=== PATIENT | female | born 1985 | race African-American/Black ===

== ENCOUNTER 2018-12-30 05:09 | Day surgery (SDC) | payer MEDICAID ==
[~2018-12-30] VITALS: Ht 160 cm; Wt 60.3 kg
[2018-12-30 05:40] LABS: BASOPHILS 0.1 % (0-2); EOSINOPHILS 1.3 % (0-7); HEMATOCRIT 25.9 % (36.0-48.0); HEMOGLOBIN 8.3 g/dL (12-16); IMMATURE GRANULOCYTES 0.1 % (0-5); MCH 26.6 pg (26.0-34.0); MEAN PLATELET VOLUME 8.8 fL (7.4-10.4); NEUTROPHILS 70.5 % (40-80); RBC 3.12 10x6/uL (4.00-5.40); RDW 20.1 % (11.5-14.5); WBC 7.6 10x3/uL (4.8-10.8)
[2018-12-30 05:42] LABS: PLATELET COUNT 211 10x3/uL (130-400)
[2018-12-30 05:47] LABS: PROTIME 12.7 SECONDS (11.6-15.0)
[2018-12-30 05:50] LABS: ANION GAP 14.4 mmol/L (8-16); CALCIUM 8.4 mg/dL (8.5-10.1); CREATININE - SERUM 4.1 mg/dL (0.6-1.3); POTASSIUM - SERUM 3.4 mmol/L (3.5-5.1)
[2018-12-30 06:31] LABS: HCG URINE NEGATIVE (NEGATIVE)
[2018-12-30] MEDS ORDERED: NIFEDIPINE 30 MG (06:32)
[2018-12-30] MEDS ORDERED: NORMODYNE / TR200 MG PO (06:33)
[2018-12-30] MEDS ORDERED: HUMULIN 70100 UNIT/1 SC (06:35)
[2018-12-30] MEDS ORDERED: HUMULIN N100 U/ML SQ (06:36)
[2018-12-30] MEDS ORDERED: VITAMIN D250000 UNIT (06:37)
[2018-12-30 07:10] VITALS: BP 163/93; Ht 160 cm; Wt 60.3 kg
[2018-12-30] MEDS ORDERED: HYDROCODON-ACE1 EAC7 PO (10:56)
--- NOTE | 2018-12-30 11:12 | NUR ---
APPLIED ICE TO ABDOMEN INCISION SITES ORDERED. PT RESTING QUIETLY IN BED. RR NONLABORED ON RA. WILL CTM.
--- NOTE | 2018-12-30 14:42 | NUR ---
1250 IV REMOVED, INSTRUCTIONS GIVEN. PT STATED HER CAR WAS IN THE PARKING LOT BUT HAD A FRIEND COMING TO PICK HER UP, SHE LIVE A HOUR A WAY. PT IN DOOR WAY STATED SHE WAS WAITING FOR A WHEEL CHAIR SO SHE CAN WAIT DOWN STAIRS FOR HER FRIEND. PT INSTRUCTED HER FRIEND NEEDS TO COME UP HERE. PT UNDERSTOOD 1320 PT NOTED NOT IN ROOM. GONE. NO ONE CAME UP TO GET PT. 1330 ATTEMPTED TO CALL PT BUT NO ANSWER. CHECK AIRMAN NOTED
--- NOTE | 2019-01-02 08:28 | OP ---
PATIENT NAME: JASON ALCALA MEDICAL RECORD: [id number] :83 LOCATION:D.OPS ADMISSION DATE: SURGEON: FREDRICK GALEANO MD DATE OF OPERATION: 12/30/2018 REFERRED BY: Dr. Carmelo Braun. PRIMARY CARE PHYSICIAN AND REFERRING DOCTOR: Dr. Simeon Summers of [facility] INTRAOPERATIVE VP TALENT MANAGEMENT: Dr. Morales of [facility]. SURGEON: Fredrick Galeano MD ANESTHESIA: General endotracheal per ROTARY ENGINE ASSEMBLER. PREOPERATIVE DIAGNOSIS: End-stage renal disease on chronic hemodialysis. POSTOPERATIVE DIAGNOSES: 1. End-stage renal disease on chronic hemodialysis. 2. Benign-appearing left ovarian cyst. OPERATION PERFORMED: Laparoscopic implantation of a Merit flex neck classic coil dual cuffed dialysis catheter with exit site in the left upper quadrant and intraoperative DATA COLLECTION TECHNICIAN consultation with Dr. Morales, who performed biopsy and drainage of the left ovarian cyst laparoscopically. PREOPERATIVE NOTE: Ms. Alcala is a 33-year-old -Iraqi female with end-stage renal disease. She is on dialysis now with a tunneled dialysis catheter. She is brought to the operating room for laparoscopic implantation of peritoneal dialysis catheter. She has had the desired exit site marked in the left upper quadrant preoperatively and I believe that is going to be a very reasonable site for her. I have made arrangements preoperatively to have the correct peritoneal dialysis catheter at hand to utilize that exit site. Under general endotracheal anesthesia, she was placed in supine position. I measured on the abdomen with the flex neck coil catheter and with the use of templates and identified the ideal site for an incision in the left lower quadrant paramedian approximately 2 cm from the midline where the deeper of the 2 Dacron felt cuffs would be placed within the substance of the rectus muscle and identified the subsequent course of the catheter to the desired exit site. I then inserted a 5-mm diameter XL Optiview port with a 5 mm 0-degree laparoscope through a small incision in the right upper quadrant of the abdomen and noted the presence of adhesions in the lower abdominal midline, which needed to be lysed. I inserted yet another 5-mm port in the right lower quadrant and used Harmonic scalpel to divide the adhesions. There was no bleeding or any other complication with that. There was no omentum within the pelvis or any indication for omentopexy or similar procedure. There were no hernias noted. I then made a transverse incision at the site in the right lower quadrant over the rectus muscle and carried that down to the anterior rectus sheath. A pursestring suture of 0 Vicryl was placed there. I then infiltrated the rectus sheath at that level with 0.25% Marcaine with epinephrine. I used an 8 mm trocar to make the transrectus passage and preperitoneal tunnel during laparoscopic visualization and inserted the catheter leaving the deeper Dacron OPERATIVE REPORT [id number] JASON ALCALA LORENAECIA felt cuff deep to the anterior rectus sheath and the pursestring suture of Vicryl was tied. The catheter was seen to reside at a proper depth within the pelvis. I also identified the presence of a large baseball sized left ovarian cyst, which was benign in appearance other than its size. There was no evidence of bleeding. At this point, we consulted Dr. Morales who was kind enough to come to the operating room and see the lesion and then scrubbed in. He performed laparoscopic cyst puncture and drainage and biopsy. It was his opinion that this was most likely a benign follicular cyst and does not necessarily need further treatment. He added a 10-mm suprapubic port during his portion of the procedure. He also used a bipolar laparoscopic cautery device. Hemostasis was excellent within the pelvis and abdominal wall. The new laparoscopic catheter was then placed in its tunnel and brought out with a Maria Dolores tunneler through the desired exit site, which made a very nice snug clean exit wound. The catheter was then attached to a liter bag of saline with urologic tubing and this fluid was allowed to run in rapidly into the abdomen and then it was allowed to run back out by gravity drainage and all of the liter of saline was easily recovered. Subsequently, the catheter was attached to a transfer set and sterilely capped. The laparoscopic ports were removed after a Mark-Annamaria suture passer was used to close the suprapubic 10-mm port site with 0 Vicryl tie. The wounds were infiltrated with Marcaine and closed with interrupted inverted 3-0 Vicryl and Dermabond glue. The longer larger incision, through which the catheter itself was inserted was closed with a running intracuticular 4-0 Stratafix. The incisions were sealed with glue and dressed with Maxorb Ag, Tegaderm, and Cavilon skin prep. The catheter exit site was dressed with a chlorhexidine Biopatch and Tegaderm and then the catheter coiled and covered with a 4 x 4 Medipore. At this point, the patient was awakened and taken to the recovery room in stable condition. PLAN: The patient will be able to go home today. I am giving her a prescription for 20 tablets of [place] 5/325. She may take 1 or if necessary 2 as often as every 4 hours p.r.n. for pain. An appointment will be made for her to follow up with me in my office next week. She will be appointed to have peritoneal catheter irrigation done next week when she is there for dialysis. She will follow up with Dr. Morales in his office if she wishes. She may wish to see Dr. Summers for gynecologic problems. Certainly Dr. Morales and I will watch for the results of the biopsy and pathology report today. She will resume her usual renal diet, home medications, and dialysis schedule. She is to wear an abdominal binder and use an ice pack p.r.n. pain from the abdominal incisions. TRANSINT:[id number] Voice Confirmation ID: [id number] DOCUMENT ID: [id number] OPERATIVE REPORT [id number] JASON ALCALA JAMES MD at 0828 CC: CARMELO MORALES MD, CARMELO BRAUN and SIMEON SUMMERS [id number] DICTATION DATE: 12/30/18 1132 MARKETING TRAINEE: 12/30/18 1159 [facility] 12/30/18 [facility] [address] [place] [address]
== END 2018-12-30 13:20 | disposition home or self-care (01) ==
LOC: D.OPS 05:09
PROVIDERS: Surgery; ATTEND Internal Medicine Nephrology
DX: N18.6 End stage renal disease (principal); N83.202 Unspecified ovarian cyst, left side

== ENCOUNTER 2019-05-10 21:27 | Inpatient (IN) | payer MEDICAID ==
[~2019-05-10] VITALS: Ht 160 cm; Wt 58.3 kg
[~2019-05-10 21:27] MED LIST: HUMULIN 70100 UNIT/1 SC; HUMULIN N100 U/ML SQ; HYDROCODON-ACE1 EAC7 PO; NIFEDIPINE 30 MG; NORMODYNE / TR200 MG PO; VITAMIN D250000 UNIT
[2019-05-10] MEDS ORDERED: FERROUS SULFAT325 MG PO (21:30)
[2019-05-10 22:12] VITALS: BP 200/110
[2019-05-10 22:30] VITALS: BP 212/117
[2019-05-10 22:50] VITALS: BP 194/106
[2019-05-10 23:00] VITALS: BP 190/105
[2019-05-10 23:18] LABS: ANION GAP 18.7 mmol/L (8-16); CALCIUM 8.1 mg/dL (8.5-10.1); CARBON DIOXIDE 17.8 mmol/L (21.0-32.0); POTASSIUM - SERUM 5.5 mmol/L (3.5-5.1)
[2019-05-10 23:25] LABS: ALBUMIN 2.7 g/dL (3.4-5.0); BILIRUBIN - TOTAL 0.61 mg/dL (0.2-1.3); MAGNESIUM - SERUM 1.6 mg/dL (1.8-2.4); PROTEIN - SERUM 6.9 g/dL (6.4-8.2)
[2019-05-10] MEDS ORDERED: PHOSLO667 MG PO (23:31)
[2019-05-10] MEDS ORDERED: HYDRALAZINE HCL25 MG PO (23:32)
--- NOTE | 2019-05-10 23:42 | NUR ---
ADMIT TO 2127, FROM ER, 20G.Bertram SARKARABDOMEN-PD CATH, PT CHIDI MARLEY AT [facility] WILL START NEXT DOSE, PT IS A&OX4,, HISTORY AND MEDS REVIEWED,DENIES ANY NEEDS AT THIS TIME, BED IS LOW, SRX2, CALL LIGHT IN REACH, WILL CONTINUE PLAN OF CARE
[2019-05-11] VITALS (54 sets, daily range): BP systolic 115–209; BP diastolic 65–123; Ht 160 cm; Wt 58.3 kg
--- NOTE | 2019-05-11 04:14 | NUR ---
PAGED FLOR ALCALA ABOUT BP 209/119
--- NOTE | 2019-05-11 04:55 | NUR ---
TRIED TO DRAIN INSTILLED PD FLUID, PT STATES ANETTE ORELLANA ATTEMPED TO DRAIN WHILE THERE, NOT SURE AMOUNT DRAINED, ABLE TO COLLECT VERY SMALL SPECIMEN TO LAB
--- NOTE | 2019-05-11 05:25 | NUR ---
CONSENTS SIGNED FOR CATH AND BLOOD
--- NOTE | 2019-05-11 06:31 | NUR ---
REC'D PT AND ASSISTED INTO ICU BED, MONITORS ON AND WORKING CALL LIGHT WITHIN REACH, WILL CONTINUE TO OBSERVE.
--- NOTE | 2019-05-11 06:35 | NUR ---
DR JULIUS HERNDON, REC'D NEW ORDERS.
[2019-05-11 06:52] LABS: BASOPHILS 0.1 % (0-2); EOSINOPHILS 0.1 % (0-7); HEMATOCRIT 29.5 % (36.0-48.0); HEMOGLOBIN 9.3 g/dL (12-16); IMMATURE GRANULOCYTES 0.3 % (0-5); LYMPHOCYTES 9.9 % (15-50); MCH 26.4 pg (26.0-34.0); MCHC 31.5 g/dL (31.0-37.0); MCV 83.8 fL (80.0-100.0); MEAN PLATELET VOLUME 9.3 fL (7.4-10.4); MONOCYTES 2.5 % (2-11); NEUTROPHILS 87.1 % (40-80); PLATELET COUNT 233 10x3/uL (130-400); RBC 3.52 10x6/uL (4.00-5.40); RDW 14.3 % (11.5-14.5); WBC 6.9 10x3/uL (4.8-10.8)
[2019-05-11 07:05] LABS: ANION GAP 20.1 mmol/L (8-16); CALCIUM 8.6 mg/dL (8.5-10.1); CARBON DIOXIDE 18.3 mmol/L (21.0-32.0); CREATININE - SERUM 11.5 mg/dL (0.6-1.3); MAGNESIUM - SERUM 1.6 mg/dL (1.8-2.4); PHOSPHOROUS 7.4 mg/dL (2.5-4.9); POTASSIUM - SERUM 5.4 mmol/L (3.5-5.1)
--- NOTE | 2019-05-11 07:15 | NUR ---
REPORT RECEIVED. PT JUST TRANSFERRED FROM FLOOR. PT HAS RIGHT EJ WITH CARDENE INFUSING. PT DOES PERITONEAL DIAYLSIS. PT HAS ELEVATED PB. BREATH SOUNDS CLEAR. BOWEL SOUNDS ACTIVE. HAS VOMITTED SMALL AMOUNT OF GREEN EMESIS. WILL CONTINUE TO MONITOR.
[2019-05-11 08:36] LABS: MACROPHAGES BF 3 %; NEUT - BF 89 %
--- NOTE | 2019-05-11 09:43 | NUR ---
PT RESTING QUIETLY. BP CURRENTLY 133/79. CARDENE STILL INFUSING. NO NEEDS AT THIS TIME.
--- NOTE | 2019-05-11 10:18 | NUR ---
RENAL PURCHASER AUTOMOTIVE PARTS, REYES, IN WITH PT AT THIS TIME. HOLDING PD AT THIS TIME. NO OTHER NEW ORDERS FOR NOW. WILL CONTINUE TO MONITOR.
--- NOTE | 2019-05-11 10:54 | NUR ---
SPOKE WITH PHARMACY REGARDING LABETOLOL AND VANC THAT NEEDS TO BE ADDED TO PERITONEAL DIALYSIS. STATED THEY WOULD HAVE THAT LOADED SOON. DIALYSIS FLUID WARMING AT THIS TIME.
--- NOTE | 2019-05-11 12:00 | NUR ---
DR MADRID STATED TO CHANGE PERITONEAL DIALYSIS FLUID TO 1.5% FOR NEXT DOSE.
--- NOTE | 2019-05-11 12:03 | NUR ---
PERITONEAL FLUID BEING ADMINISTERED INTO ABD AT THIS TIME WITH VANC ADDED. STARTED AT 1200. WILL MONITOR. PT VOMITTED PRIOR TO STARTING, STATED SHE THOUGHT HER LABETOLOL CAME UP WITH IT. WILL CONTINUE TO MONITOR VITAL SIGNS.
--- NOTE | 2019-05-11 12:23 | NUR ---
SPOKE [facility] REGARDING NEXT DOSE FOR PERITONEAL FLUID AND VANC. WILL BE CHANGED PER BON TO 1800. 1ST DOSE DONE TRANSFUSING TO ABD. WILL DWELL FOR 6 HOURS. PT STILL NAUSEATED. ZOFRAN GIVEN.
--- NOTE | 2019-05-11 13:26 | NUR ---
PT RESTING QUIETLY. VSS. WILL TRY TO WEAN OFF CARDENE.
--- NOTE | 2019-05-11 15:15 | NUR ---
PT RESTING QUIETLY WITH VSS. WILL CONTINUE TO MONITOR. CALL LIGHT IN REACH.
--- NOTE | 2019-05-11 17:08 | NUR ---
BS 150. CLARIFIED DOSE WITH PT AND PHARMACIST. WILL START MEDICATION TONIGHT AT 2100.
--- NOTE | 2019-05-11 19:00 | NUR ---
Report received from off going nurse. Pt is resting in bed with eyes open at this time. No needs voiced from pt. Initial assessment completed, see flowsheet for details. No s/s of distress. Will continue to monitor.
--- NOTE | 2019-05-11 21:00 | NUR ---
Pt is laying in bed with eyes open at this time. Pt was given water and chg soap to wash herself up. No further needs voiced. NO s/s of distres. Will continue to monitor.
--- NOTE | 2019-05-11 23:00 | NUR ---
Reassessment completed, see flowsheet for details. Pt is resting in bed with eyes open at this time. No needs voiced. No s/s of distress. Will continue to monitor.
[2019-05-12] VITALS (18 sets, daily range): BP systolic 107–127; BP diastolic 66–88
--- NOTE | 2019-05-12 01:00 | NUR ---
Pt is laying in bed with eyes closed. No needs voiced/noted. No s/s of distress. Will continue to monitor.
--- NOTE | 2019-05-12 03:00 | NUR ---
Reassessment completed, see flowsheet for details. Pt is laying in bed with eyes closed. No needs voiced or noted. No s/s of distress. Will continue to monitor.
--- NOTE | 2019-05-12 05:00 | NUR ---
Pt is resting in bed with eyes closed at this time. No needs voiced/noted at this time. No s/s of distress. Will continue to monitor.
--- NOTE | 2019-05-12 07:53 | NUR ---
REPORT RECEIVED. DR BRAUN ROUNDED ON PT. STATED IT WOULD BE OKAY TO TRANSFER HER TO THE FLOOR TODAY. IV TO RIGHT EJ. NO FLUIDS AT THIS TIME. HAS FLUID DWELLING IN ABD AT THIS TIME. DENIES N/V. VSS. WILL CONTINUE TO MONITOR.
--- NOTE | 2019-05-12 09:15 | NUR ---
PT RESTING QUIETLY. VSS. NO COMPLAINTS OR NEEDS AT THIS TIME.
--- NOTE | 2019-05-12 11:45 | NUR ---
PT TRAY TAKEN FOR LUNCH. VSS. WILL CONTINUE TO MONITOR. NO COMPLAINTS OR NEEDS AT THIS TIME.
--- NOTE | 2019-05-12 12:25 | NUR ---
PD FLUID DRAINING. WILL INFUSE DIALYSIS FLUID WHEN DONE. VSS. WILL CONTINUE TO MONITOR.
--- NOTE | 2019-05-12 15:08 | NUR ---
PT RESTING COMFORTABLY. VSS. NO NEEDS AT THIS TIME. WILL CONTINUE TO MONITOR.
--- NOTE | 2019-05-12 17:37 | NUR ---
REPORT GIVEN TO ELIEZER IVAN, ON MED 2. ROOM IS CURRENTLY NOT CLEANED. FREIGHT SOLICITOR SAID THERE WERE SEVERAL BEDS THAT NEEDED TO BE CLEANED BEFORE THEN.
--- NOTE | 2019-05-12 18:30 | NUR ---
PT FILLING WITH DIALYSIS FLUID AT THIS TIME. ONCE DONE, WILL TRANSPORT PT TO 2111.
--- NOTE | 2019-05-12 19:05 | NUR ---
PATIENT IN BED RESTING WITH EYES OPEN. NO S/S OF DISTRESS. NO COMPLAINTS AT THIS TIME. PATIENT HAS A R EJ THAT IS SALINE LOC. R EJ IS PATENT WITHOUT REDNESS, SWELLING, OR TENDERNESS. PATIENT CAME FROM ICU BEFORE SHIFT CHANGE. PATIENT HAS R MIDDLE QUADRANT PERITONEAL DIALYSIS. CALL LIGHT IN PLACE. WILL CONTINUE TO MONITOR.
--- NOTE | 2019-05-12 19:28 | MORECARE ---
CASE MANAGEMENT DISCHARGE SUMMARY PATIENT: JASON ALCALAECIA UNIT: [id number] ADM DATE: 05/10/19 AGE: 33 : 84 SEX: F ROOM/BED: D.[facility]2 AUTHOR: LILIYA PRATT PHYSICIAN: REFERRING PHYSICIAN: JUSTINA BRAUN MD DATE OF SERVICE: 05/12/19 Discharge Plan Patient Name: JASON ALCALA [facility] [facility] 1985 Planned Disposition: Home Anticipated Discharge Date: Discharge Date: Expected LOS: Initial Reviewer: [email or web address] Initial Review Date: 05/11/2019 Generated: 05/12/19 8:28 pm DCPIA - Discharge Planning Initial Assessment Updated by [email or web address]: Belia Cordero on 05/12/19 7:26 pm * Is the patient Alert and Oriented? Yes * How many steps to enter\exit or inside your home? * PCP DANA * Pharmacy [facility] * Preadmission Environment Home with Family * ADLs Independent * Other Equipment PD SUPPLIES * List name and contact numbers for known caregivers / representatives who currently or will assist patient after discharge: RUSH ALCALA - [facility] - [phone] * Verbal permission to speak to the caregivers and representatives has been obtained from the patient. Yes * Community resources currently utilized None * Additional services required to return to the preadmission environment? No * Can the patient safely return to the preadmission environment? Yes * Has this patient been hospitalized within the prior 30 days at any hospital? No Patient Name: JASON ALCALA Page [phone] at 1928 All edits/amendments must be made on the electronic document DICTATION DATE: 05/12/191927 1ST PRESSMAN: RYAN 05/12/191927 RPT#: [id number] DC DATE: STATUS: ADM IN [facility] [address] [place] [address] END OF REPORT
--- NOTE | 2019-05-12 19:35 | MORECARE ---
CASE MANAGEMENT DISCHARGE SUMMARY PATIENT: JASON ALCALA UNIT: [id number] ADM DATE: 05/10/19 AGE: 33 : 84 SEX: F ROOM/BED: D.1012 AUTHOR: TERENCE,DOC PHYSICIAN: REFERRING PHYSICIAN: JUSTINA BRAUN MD DATE OF SERVICE: 05/12/19 Discharge Plan Patient Name: JASON ALCALA Facility: [facility]:[place] : 1985 Planned Disposition: Home Anticipated Discharge Date: Discharge Date: Expected LOS: Initial Reviewer: [email or web address] Initial Review Date: 05/11/2019 Generated: 05/12/19 8:34 pm Comments DCP- Discharge Planning Updated by [email or web address]: Belia Cordero on 05/12/19 6:[address] Patient Name: JASON ALCALA Admission Status: ER Accout number: [id number] Admission Date: 05-10-2019 : 1985 Admission Diagnosis: Attending: JUSTINA BRAUN Current LOS: 2 Anticipated DC Date: Planned Disposition: Home Primary Insurance: MEDICAID [place] Discharge Planning Comments: CM met with patient to complete initial dc planning assessment. CM educated patient on the CM role and verbal consent given by patient to complete assessment. Patient lives at home with her father where she is independent with her care. At discharge patient plans to return home and feels this is a safe discharge. CM discussed availability of home health, rehab services, and medical equipment. Her family will be her emt driver home. Patient has PD supplies @ home. Patient denied known discharge needs at this time. CM will continue to follow and will assist as needed with dc plans/needs. [facility] Attendant: Belia Cordero DCPIA - Discharge Planning Initial Assessment Updated by [email or web address]: Belia Cordero on 05/12/19 7:26 pm * Is the patient Alert and Oriented? Yes * How many steps to enter\exit or inside your home? * PCP DANA * Pharmacy [facility] * Preadmission Environment Home with Family * ADLs Independent * Other Equipment PD SUPPLIES * List name and contact numbers for known caregivers / representatives who currently or will assist patient after discharge: RUSH ALCALA - FATHER - [phone] * Verbal permission to speak to the caregivers and representatives has been obtained from the patient. Yes * Community resources currently utilized None * Additional services required to return to the preadmission environment? No * Can the patient safely return to the preadmission environment? Yes * Has this patient been hospitalized within the prior 30 days at any hospital? No Last DP export: 05/12/19 6:28 p Patient Name: JASON ALCALA Page [id number] at 1935 All edits/amendments must be made on the electronic document DICTATION DATE: 05/12/191933 PRESS AND BLOW MACHINE TENDER: RYAN 05/12/191933 RPT#: [id number] DC DATE: STATUS: ADM IN [facility] [address] [place] [address] END OF REPORT
--- NOTE | 2019-05-12 23:54 | NUR ---
LYING IN BED WITH EYES OPEN WATCHING TV. ALERT AND ORIENTED x4. NO COMPLAINTS OF PAIN AT THIS TIME WILL CONTINUE TO OBSERVE.
[2019-05-13 00:56] VITALS: BP 104/65
[2019-05-13 05:19] VITALS: BP 132/74
--- NOTE | 2019-05-13 05:24 | NUR ---
LYING IN BED RESTING WITH EYES CLOSED. NO SIGNS OR SYMPTOMS OF DISTRESS NOTED. ALERT AND ORIENTED x4. PT COMPLAINS OF NO PAIN AT THIS TIME. PERITONEAL DIALYSIS STARTED AT 0047 AND ENDED @0145. PT TOLERATED PROCEDURE WELL. RIGHT EJ SALINE LOCKED. PT ADVISED TO CALL FOR HELP WHEN GETTING TO AND FROM BED. BED IN LOWEST POSITION AND CALL LIGHT IS WITH IN REACH. WILL CONTINUE TO OBSERVE.
--- NOTE | 2019-05-13 07:26 | NUR ---
AM ROUNDS COMPLETED. INTRODUCED MYSELF TO PT PRIMARY RN FOR TODAYS SHIFT. PTS PD SESSION IS LATE HOWEVER NO FLUID FOR EXCHANGE IS AVAILABLE. NOTIFIED DROP MAN AND WILL BEGIN WHEN RETRIEVED FROM CENTRAL SUPPLY. PT RESTING QUIETLY IN BED AND DENIES ANY CURRENT PAIN OR NEEDS. CL IN REACH. WILL CTM.
--- NOTE | 2019-05-13 08:00 | NUR ---
NOTIFIED ENTERTAINMENT LAWYER THAT WE STILL DO NOT HAVE THE ORDERED PD FLUID. WILL CONTINUE TO WAIT.
--- NOTE | 2019-05-13 09:49 | NUR ---
FINALLY OBTAINED AND WARMED FLUID. WILL BEGIN PTS PD ORDERED AND CHANGE TIMES ACCORDINGLY FOR Q6HRS ORDERED. PT INQUIRING ABOUT A REGULAR DIET SHE IS TOLERATING CLEAR LIQUIDS JUST FINE. WILL DISCUSS WITH PRIMARY AND CPOC.
--- NOTE | 2019-05-13 10:25 | NUR ---
PT IS NOW COMPLETE WITH THIS PD SESSION. SUCCESSFULLY HAD 1800CC FLUID OUT AND TOOK IN 2000CC WITH HEPARIN ADDED ORDERED. PT STATES SHE IS FEELING GOOD OVERALL AND WANTS TO TAKE A SHOWER. SUPPLIES GIVEN. NO CURRENT NEEDS. WILL CTM.
[2019-05-13 10:38] VITALS: BP 129/74
[2019-05-13] MEDS ORDERED: PROCARDIA XL30 MG PO (12:22)
[2019-05-13] MEDS ORDERED: NORMODYNE / TR200 MG PO (12:23)
[2019-05-13] MEDS ORDERED: PROTONIX40 MG PO (12:25)
--- NOTE | 2019-05-13 14:16 | NUR ---
D/C PTS RIGHT EXTERNAL JUGLAR PIV WITH CATHETER TIP FULLY INTACT. ALL BELONGINGS COLLECTED. DISCHARGE TEACHING PROVIDED AND PAPERS SIGNED. PT VERBALIZED UNDERSTANDING AND DENIES ANY QUESTIONS OR CONCERNS. SISTER AT BEDSIDE FOR TRANSPORTATION. WILL ESCORT DOWN.
--- NOTE | 2019-05-14 07:54 | MORECARE ---
CASE MANAGEMENT DISCHARGE SUMMARY PATIENT: JASON ALCALA UNIT: [id number] ADM DATE: 05/10/19 AGE: 33 : 83 SEX: F ROOM/BED: D.6691 AUTHOR: TERENCE,DOC PHYSICIAN: REFERRING PHYSICIAN: JUSTINA BRAUN MD DATE OF SERVICE: 05/14/19 Discharge Plan Patient Name: JASON ALCALA Facility: [facility]:[place] : 1985 Planned Disposition: Home Anticipated Discharge Date: 05/13/19 Discharge Date: 05/13/2019 Expected LOS: 3 Initial Reviewer: [email or web address] Initial Review Date: 05/11/2019 Generated: 05/14/19 8:54 am Comments DCP- Discharge Planning Updated by [email or web address]: Belia Cordero on 05/12/19 6:[address] Patient Name: JASON ALCALA Admission Status: ER Accout number: [id number] Admission Date: 05-10-2019 : 1985 Admission Diagnosis: Attending: JUSTINA BRAUN Current LOS: 2 Anticipated DC Date: Planned Disposition: Home Primary Insurance: MEDICAID [place] Discharge Planning Comments: CM met with patient to complete initial dc planning assessment. CM educated patient on the CM role and verbal consent given by patient to complete assessment. Patient lives at home with her father where she is independent with her care. At discharge patient plans to return home and feels this is a safe discharge. CM discussed availability of home health, rehab services, and medical equipment. Her family will be her residential recycle driver home. Patient has PD supplies @ home. Patient denied known discharge needs at this time. CM will continue to follow and will assist as needed with dc plans/needs. Community Outreach Director: Belia Cordero DCPIA - Discharge Planning Initial Assessment Updated by [email or web address]: Belia Cordero on 05/12/19 7:26 pm * Is the patient Alert and Oriented? Yes * How many steps to enter\exit or inside your home? * PCP DANA * Pharmacy [facility] * Preadmission Environment Home with Family * ADLs Independent * Other Equipment PD SUPPLIES * List name and contact numbers for known caregivers / representatives who currently or will assist patient after discharge: RUSH ALCALA - FATHER - [phone] * Verbal permission to speak to the caregivers and representatives has been obtained from the patient. Yes * Community resources currently utilized None * Additional services required to return to the preadmission environment? No * Can the patient safely return to the preadmission environment? Yes * Has this patient been hospitalized within the prior 30 days at any hospital? No Last DP export: 05/12/19 6:35 p Patient Name: JASON ALCALA Page [phone] at 0754 All edits/amendments must be made on the electronic document DICTATION DATE: 05/14/19 075 COOKING SHOW HOST: RYAN 05/14/19 0754 RPT#: [id number] DC DATE:05/13/19 STATUS: DIS IN [facility] [address] [place] [address] END OF REPORT
== END 2019-05-13 14:48 | disposition home or self-care (01) | DRG 919 ==
LOC: D.ER 21:27 → D.ICU 22:28 → D.M2 22:28 → D.ICU 05-11 06:23 → D.M2 05-12 18:46
PROVIDERS: Emergency Medicine; ADMIT Internal Medicine Nephrology; ATTEND Internal Medicine Nephrology
DX: T85.71XA Infection and inflammatory reaction due to peritoneal dialysis catheter, initial encounter (principal); K65.9 Peritonitis, unspecified; N18.6 End stage renal disease; I13.2 Hypertensive heart and chronic kidney disease with heart failure and with stage 5 chronic kidney disease, or end stage renal disease; Y84.9 Medical procedure, unspecified as the cause of abnormal reaction of the patient, or of later complication, without mention of misadventure at the time of the procedure; E11.22 Type 2 diabetes mellitus with diabetic chronic kidney disease; I50.9 Heart failure, unspecified; Z99.2 Dependence on renal dialysis; K52.9 Noninfective gastroenteritis and colitis, unspecified